=== PATIENT | female | born 1975 | race Caucasian/White ===

== ENCOUNTER → 2016-05-14 | Day surgery (SDC) | payer OTHER ==
[~2016-05-14] MED LIST: HYDROCHLOROTHIA25 MG PO; LEXAPRO20 MG PO; LISINOPRIL10 MG PO; MOTRIN600 MG; OMEPRAZOLE40 M1 PO; TRAZODONE HCL100 MG PO; WELLBUTRIN100 MG PO; [UNRECOGNIZED DRUG - REMARK]
--- NOTE | ~2016-05-14 | OR ---
Unit #: [id number] #: [id number] Patient: CARLINE ALVARADO [id number] [place], [place] [address] [id number] O MR#: [id number] NAME: CARLINE ALVARADO ROOM: Date of Procedure: 05/14/2016 Admission Date: 05/14/2016 Surgeon: Sergei Nix M.D. : 1975 Attending Physician: Sergei Nix M.D. Primary Care Physician: Kaela Cyr Aprn OPERATIVE REPORT PREOPERATIVE DIAGNOSES Chronic cholecystitis and cholelithiasis. POSTOPERATIVE DIAGNOSES Chronic cholecystitis and cholelithiasis. PROCEDURE PERFORMED Laparoscopic cholecystectomy. ANESTHESIA General endotracheal anesthesia. ESTIMATED BLOOD LOSS Less than 20 mL. INDICATIONS FOR PROCEDURE A 40-year-old female with postprandial nausea and right upper quadrant pain. Ultrasound revealed cholelithiasis with normal biliary ductal system. Preoperative liver chemistries were unremarkable. DESCRIPTION OF PROCEDURE The patient was admitted to [facility], positively identified, and transported to the operating room, and after induction of general endotracheal anesthesia, she was prepped and draped in usual sterile fashion. A 5-mm supraumbilical incision made. Veress needle was placed. Pneumoperitoneum was created. Then, a 5-mm trocar was placed. Laparoscope was introduced into the peritoneal cavity under direct vision. The epigastric and lateral ports were placed. Gallbladder was grasped and elevated. Adhesions were stripped away and the infundibulum was retracted laterally. [place] of [place] was completely dissected free clearly identifying the cystic duct, gallbladder, and cystic duct-common duct junction and the posteriorly placed cystic artery. No other structures in the triangle of Calot were visible. The duct was small and was swept upwards and then a single clip was placed in the cystic duct centered to gallbladder and 3 clips were placed distally and the cystic duct sharply divided. Posteriorly, the cystic artery was doubly clipped proximally and distally and then divided. I then dissected the gallbladder liver bed using cautery dissection. Once it was freed up from its hepatic attachments, it was brought out through the epigastric port. There was no spillage of stones. The area was irrigated and there was excellent hemostasis. The clips were well positioned. The irrigant was suctioned out. The fascial defect was closed with a neoClose device and the closure Unit #: [id number] #: [id number] Patient: CARLINE ALVARADO was airtight with good hemostasis. I then reduced pneumoperitoneum as I removed laparoscope and trocars. A 0.5% Marcaine with epinephrine was infiltrated in each trocar site. The skin was closed with 4-0 Monocryl subcuticular closure and Dermabond skin adhesive. Sponges and needle counts were correct x3. The patient tolerated the procedure well and was transported to recovery in stable condition. Findings and postoperative instructions were discussed with the family. Dictated by... Philomena Singh/jovanny TD: 05/15/2016 02:39 JOB #: [id number] OPERATIVE REPORT X Sergei Nix MD X PROCEDURE OPERATIVE NOTE
--- NOTE | ~2016-05-14 | EKG ---
PATIENT: CARLINE ALVARADO UNIT #: [id number] Ventricular Rate: 92 BPM Atrial Rate: 92 BPM P-R Interval: 150 ms QRS Duration: 74 ms Q-T Interval: 374 ms QTC Calculation(Bezet): 462 ms P [place]: 26 degrees Calculated R [place]: 23 degrees Calculated T [place]: 19 degrees Diagnosis Line: Normal sinus rhythm Diagnosis Line: Normal ECG Diagnosis Line: No previous ECGs available Diagnosis Line: Confirmed by ABELARDO SAMUELS MD ([id number]) on 05/14/2016 Diagnosis Line: 5:46:31 PM INTERPRETING MD: ARVIND WILLIAMSON
[2016-05-14 10:15] LABS: BASOPHIL# 0.1 X10e3 (0-0.3); EOSINOPHIL# 0.2 X10e3 (0-0.7); EOSINOPHIL% 1.9 % (0.0-7.0); HEMATOCRIT 40.4 % (35.0-45.0); HEMOGLOBIN 13.8 gm/dL (12.0-16.0); LYMPHOCYTE% 28.2 % (17.0-45.0); MEAN CELL VOLUME 89.9 FL (83-96); MEAN CORPUSCULAR HEMOGLOBIN 30.7 PG (28-34); MEAN CORPUSCULAR HGB CONC 34.2 g/dL (30-36); MONOCYTE# 0.7 X10e3 (0-1.0); MONOCYTE% 6.8 % (3.0-12.0); NEUTROPHIL# 6.5 X10e3 (1.5-7.1); NEUTROPHIL% 62.1 % (40-75); PLATELET COUNT 271 X10e3 (140-420); RED CELL DISTRIBUTION WIDTH 12.3 % (11.0-15.5); WHITE BLOOD COUNT 10.5 X10e3 (4.0-10.5)
[2016-05-14 10:22] LABS: DIFF IND NO
[2016-05-14 10:48] LABS: ALBUMIN SERUM 4.4 g/dL (3.5-5.0); ALKALINE PHOSPHATASE 73 U/L (32-92); ALT (SGPT) 18 U/L (10-40); AST (SGOT) 20 U/L (10-42); BILIRUBIN,TOTAL 0.5 mg/dL (0.2-2.0); BLOOD UREA NITROGEN 20 mg/dL (9-23); BUN/CREATININE RATIO 22.22; CALCIUM SERUM 9.1 mg/dL (8.4-10.2); CARBON DIOXIDE 27 mmol/L (22-31); CHLORIDE 100 mmol/L (100-111); CREATININE SERUM 0.9 mg/dL (0.6-1.4); GLOM FILT RATE Estimated ABOVE60 mL/min (>60); GLUCOSE FASTING 104 mg/dL (70-110); POTASSIUM 3.6 mmol/L (3.5-5.1); PROTEIN TOTAL SERUM 7.4 g/dL (6.0-8.3); SODIUM 137 mmol/L (135-145)
== END | disposition home or self-care (01) ==
LOC: CSUR 09:20
PROVIDERS: Specialist
DX: K80.10 Calculus of gallbladder with chronic cholecystitis without obstruction (principal); I10 Essential (primary) hypertension; K21.9 Gastro-esophageal reflux disease without esophagitis; M54.5 Low back pain; F41.9 Anxiety disorder, unspecified; F32.9 Major depressive disorder, single episode, unspecified; Z88.8 Allergy status to other drugs, medicaments and biological substances; Z79.1 Long term (current) use of non-steroidal anti-inflammatories (NSAID); Z79.899 Other long term (current) drug therapy; Z90.89 Acquired absence of other organs; Z98.890 Other specified postprocedural states
CPT/HCPCS: 80053; 84703; 85025; 88304; 93005; J0131; J0330; J0690; J1100; J1885; J2250; J2405; J2710; J3010